=== PATIENT | male | born 1955 | race Caucasian/White ===

== ENCOUNTER 2021-06-22 08:45 | Inpatient (IN) | payer MEDICARE ==
[2021-06-22 10:10] VITALS: BMI 33.5
[2021-06-22] MEDS ORDERED: Morphine 4 MG/ML VIAL SLOW IVP SCH (11:15)
[2021-06-22] MEDS ORDERED: Acetaminophen 325 MG TAB PO PRN (11:45)
[2021-06-22] MEDS: Nicotine 21 MG PATCH TD SCH (13:42)
[2021-06-22] MEDS: cefTRIAXone\\ROCEPHIN 1 GM in Sodium Chloride 0.9% 100 ML IVPB SCH (13:42)
[2021-06-22 13:44] LABS: INR-International Normal Ratio 2.5; Prothrombin Time 27.8 sec (12.0-14.7)
[2021-06-22] MEDS: Morphine 4 MG/ML VIAL SLOW IVP PRN ×2 (16:30→21:30)
[2021-06-22] MEDS: Famotidine 20 MG TAB PO SCH (21:23)
[2021-06-23] MEDS: Morphine 4 MG/ML VIAL SLOW IVP PRN (00:32)
[2021-06-23] MEDS: HYDROcodone/Acetaminophen 10/325 mg Tablet PO PRN ×5 (04:21→22:08)
[2021-06-23 06:24] LABS: #Basophils 0.1 thou/uL (0.0-0.2); #Eosinphils 0.2 thou/uL (0.0-0.7); #Lymphocytes 1.5 thou/uL (1.20-3.40); #Monocytes 1.2 thou/uL (0.11-0.59); #Neutrophils 10.1 thou/uL (1.40-6.50); %Basophils 0.5 % (0.0-1.0); %Eosinophils 1.8 % (0.0-10.0); %Lymphocytes 11.5 % (21.0-51.0); %Monocytes 8.8 % (0.0-10.0); %Neutrophils 77.3 % (42.0-75.0); Hemoglobin 15.6 g/dL (14.0-18.0); Mean Corpuscular HGB CONC 32.1 g/dL (32.0-36.0); Mean Corpuscular Hemoglobin 32.3 pg (27.0-31.0); Mean Platelet Volume 9.1 fL (7.4-10.4); Platelet Count 189 thou/uL (130-400); RBC Distribution Width 12.3 % (11.5-14.5); Red Blood Cell (RBC) Count 4.83 mill/uL (4.70-6.10); White Blood Cell (WBC) Count 13.1 thou/uL (4.8-10.8)
[2021-06-23 06:44] LABS: Anion Gap 12 mmol/L (10-20); BUN (Urea Nitrogen) 16 mg/dL (8.4-25.7); Calc. Creatinine Clearance 125 mL/min (70-130); Calcium 8.9 mg/dL (7.8-10.44); Carbon Dioxide 26 mmol/L (23-31); Chloride 98 mmol/L (98-107); Glucose 121 mg/dL (80-115); Potassium 4.3 mmol/L (3.5-5.1); Sodium 132 mmol/L (136-145)
[2021-06-23] MEDS: Famotidine 20 MG TAB PO SCH ×2 (08:51→22:08)
[2021-06-23] MEDS: Enoxaparin Sodium 40 MG/0.4 ML SYRINGE SC SCH (08:59)
[2021-06-23] MEDS ORDERED: FLU VACC QS2021-22(65YR UP)/PF 240 MCG/0.7 ML SYRINGE IM ONE (09:00)
[2021-06-23] MEDS: cefTRIAXone\\ROCEPHIN 1 GM in Sodium Chloride 0.9% 100 ML IVPB SCH (12:48)
[2021-06-23] MEDS: Nicotine 21 MG PATCH TD SCH (12:51)
[2021-06-23 13:37] LABS: Prothrombin Time 22.8 sec (12.0-14.7)
[2021-06-23] MEDS: Sodium Chloride 0.65% Nasal 44 ML BOT EA NARE PRN ×2 (13:49→17:14)
[2021-06-23] MEDS ORDERED: WARFARIN 10 MG PO SCH (17:00)
[2021-06-24] MEDS: HYDROcodone/Acetaminophen 10/325 mg Tablet PO PRN ×5 (00:34→23:59)
[2021-06-24] MEDS: Ondansetron ODT 4 MG TAB PO PRN ×2 (00:37→06:42)
[2021-06-24 08:24] LABS: Hemoglobin 14.9 g/dL (14.0-18.0); Mean Corpuscular HGB CONC 32.6 g/dL (32.0-36.0); Mean Corpuscular Hemoglobin 32.8 pg (27.0-31.0); Mean Platelet Volume 8.7 fL (7.4-10.4); Platelet Count 190 thou/uL (130-400); RBC Distribution Width 12.3 % (11.5-14.5); Red Blood Cell (RBC) Count 4.54 mill/uL (4.70-6.10); White Blood Cell (WBC) Count 10.8 thou/uL (4.8-10.8)
[2021-06-24 08:36] LABS: INR-International Normal Ratio 1.7; Prothrombin Time 20.4 sec (12.0-14.7)
[2021-06-24 08:39] LABS: Anion Gap 13 mmol/L (10-20); BUN (Urea Nitrogen) 16 mg/dL (8.4-25.7); Calc. Creatinine Clearance 126 mL/min (70-130); Calcium 8.9 mg/dL (7.8-10.44); Carbon Dioxide 28 mmol/L (23-31); Chloride 99 mmol/L (98-107); Glucose 179 mg/dL (80-115); Potassium 4.5 mmol/L (3.5-5.1); Sodium 135 mmol/L (136-145)
[2021-06-24] MEDS ORDERED: Enoxaparin Sodium 100 MG/ML SYRINGE SC SCH (09:15)
[2021-06-24] MEDS: Famotidine 20 MG TAB PO SCH ×2 (09:35→19:56)
[2021-06-24] MEDS: Enoxaparin Sodium 40 MG/0.4 ML SYRINGE SC SCH (09:35)
[2021-06-24] MEDS: Lidocaine 5% Patch TD SCH (09:36)
[2021-06-24] MEDS: Sodium Chloride 0.65% Nasal 44 ML BOT EA NARE PRN ×3 (09:37→18:13)
[2021-06-24] MEDS: cefTRIAXone\\ROCEPHIN 1 GM in Sodium Chloride 0.9% 100 ML IVPB SCH (11:23)
[2021-06-24] MEDS ORDERED: Senokot 8.6 MG TAB PO PRN (12:00)
[2021-06-24] MEDS ORDERED: Polyethylene Glycol 3350 17 GM Packet PO SCH (12:00)
[2021-06-24] MEDS: Nicotine 21 MG PATCH TD SCH (13:00)
[2021-06-24] MEDS ORDERED: WARFARIN 10 MG PO SCH (17:00)
[2021-06-24] MEDS: Enoxaparin Sodium 100 MG/ML SYRINGE SC SCH ×2 (19:56→19:58)
[2021-06-24] MEDS: Senokot 8.6 MG TAB PO SCH (19:56)
[2021-06-24] MEDS: Transdermal Patch Removal TOP SCH (20:14)
[2021-06-25] MEDS: HYDROcodone/Acetaminophen 10/325 mg Tablet PO PRN ×5 (03:45→21:37)
[2021-06-25 05:34] LABS: INR-International Normal Ratio 1.8; Prothrombin Time 21.5 sec (12.0-14.7)
[2021-06-25] MEDS: Enoxaparin Sodium 100 MG/ML SYRINGE SC SCH ×2 (08:53→21:23)
[2021-06-25] MEDS: Famotidine 20 MG TAB PO SCH ×2 (08:54→21:32)
[2021-06-25] MEDS: Senokot 8.6 MG TAB PO SCH ×2 (08:55→21:33)
[2021-06-25] MEDS: Polyethylene Glycol 3350 17 GM Packet PO SCH (08:56)
[2021-06-25] MEDS: Lidocaine 5% Patch TD SCH ×2 (08:56→08:58)
[2021-06-25] MEDS ORDERED: Warfarin Sodium 10 MG TAB PO SCH (09:00)
[2021-06-25] MEDS ORDERED: Bisacodyl 5 MG TAB PO SCH (12:45)
[2021-06-25] MEDS: cefTRIAXone\\ROCEPHIN 1 GM in Sodium Chloride 0.9% 100 ML IVPB SCH (13:42)
[2021-06-25] MEDS: Nicotine 21 MG PATCH TD SCH (13:42)
[2021-06-25] MEDS ORDERED: WARFARIN 10 MG PO SCH (17:00)
[2021-06-25] MEDS: WARFARIN 10 MG PO SCH ×2 (17:40→20:20)
[2021-06-25] MEDS: Transdermal Patch Removal TOP SCH (21:39)
[2021-06-26] MEDS: HYDROcodone/Acetaminophen 10/325 mg Tablet PO PRN ×4 (02:50→15:16)
[2021-06-26] MEDS: Lidocaine 5% Patch TD SCH (08:23)
[2021-06-26] MEDS: Famotidine 20 MG TAB PO SCH (08:23)
[2021-06-26] MEDS: Polyethylene Glycol 3350 17 GM Packet PO SCH (08:23)
[2021-06-26] MEDS: Senokot 8.6 MG TAB PO SCH (08:23)
[2021-06-26] MEDS: Enoxaparin Sodium 100 MG/ML SYRINGE SC SCH (08:23)
[2021-06-26 08:57] VITALS: BP 134/78; TEMP 97.6
[2021-06-26 09:05] LABS: INR-International Normal Ratio 2.1; Prothrombin Time 24.1 sec (12.0-14.7)
[2021-06-26] MEDS: cefTRIAXone\\ROCEPHIN 1 GM in Sodium Chloride 0.9% 100 ML IVPB SCH (11:59)
[2021-06-26] MEDS: Nicotine 21 MG PATCH TD SCH (11:59)
[2021-06-26] MEDS ORDERED: WARFARIN 10 MG PO SCH (17:00)
== END 2021-06-26 15:38 | disposition home or self-care (01) | DRG 193 ==
LOC: MSONC 10:02 → INTOOBSV 10:02 → OBSVTOIN 06-24 18:26
PROVIDERS: ADMIT Student in an Organized Health Care Education/Training Program; ATTEND Internal Medicine
DX: J18.9 Pneumonia, unspecified organism (principal); J96.01 Acute respiratory failure with hypoxia; E87.1 Hypo-osmolality and hyponatremia; S22.31XA Fracture of one rib, right side, initial encounter for closed fracture; J43.9 Emphysema, unspecified; K76.0 Fatty (change of) liver, not elsewhere classified; K59.00 Constipation, unspecified; F17.210 Nicotine dependence, cigarettes, uncomplicated; W20.8XXA Other cause of strike by thrown, projected or falling object, initial encounter; Z88.1 Allergy status to other antibiotic agents; Z79.01 Long term (current) use of anticoagulants; Z79.899 Other long term (current) drug therapy; Z95.2 Presence of prosthetic heart valve; Z79.891 Long term (current) use of opiate analgesic; Z90.49 Acquired absence of other specified parts of digestive tract; Z71.6 Tobacco abuse counseling
CPT/HCPCS: 36415; 80048; 83880; 85025; 85027; 85610; 93306; 96365; 96366; 96367; 96375; 96376; G0378; J0696; J1650; J2270; J3490; J7620; Q0162

== ENCOUNTER 2025-02-05 08:28 | Outpatient (CLI) | payer OTHER | END 2025-02-05 08:29 | disposition home or self-care (01) | LOC: RAD 08:28 | PROVIDERS: ATTEND Internal Medicine | DX: R06.00 Dyspnea, unspecified (principal); R06.9 Unspecified abnormalities of breathing; R91.1 Solitary pulmonary nodule | CPT/HCPCS: 71046 ==

== ENCOUNTER 2025-04-05 11:53 | Outpatient (CLI) | payer OTHER | END 2025-04-05 11:54 | disposition home or self-care (01) | LOC: RAD 11:53 | DX: K59.00 Constipation, unspecified (principal); R63.0 Anorexia; R63.4 Abnormal weight loss | CPT/HCPCS: 74018 ==

== ENCOUNTER 2025-04-08 09:19 | Outpatient (CLI) | payer OTHER ==
[2025-04-08] MEDS ORDERED: Barium Sulfate 96% 176 GM BOT (xray ONLY) ONE (09:30)
[2025-04-08] MEDS ORDERED: E-Z-HD 98% W/W 340GM BOT (x-ray ONLY) ONE (09:30)
== END 2025-04-08 09:20 | disposition home or self-care (01) ==
LOC: RAD 09:19
DX: K59.00 Constipation, unspecified (principal); R63.0 Anorexia; R63.4 Abnormal weight loss; K57.10 Diverticulosis of small intestine without perforation or abscess without bleeding
CPT/HCPCS: 74246

== ENCOUNTER 2025-04-09 04:45 | Inpatient (IN) | payer OTHER ==
[2025-04-09 06:10] VITALS: BMI 31.4
[2025-04-09] MEDS ORDERED: Electrolyte Replacement Protocol 1 EACH FS SCH (06:15)
[2025-04-09] MEDS ORDERED: PHOS-NAK 1 PKT PACK PO PRN (06:30)
[2025-04-09] MEDS ORDERED: Magnesium 2 GM/50 ML(in water) 2 GM in Premix 1 BAG IVPB PRN (06:30)
[2025-04-09] MEDS ORDERED: Potassium Chloride 20 MEQ in Premix 1 BAG IVPB PRN (06:30)
[2025-04-09 07:01] LABS: #Basophils 0.09 10x3/uL (0.0-0.2); #Eosinophils 0.24 10x3/uL (0.0-0.7); #Monocytes 0.63 10x3/uL (0.11-0.59); #Neutrophils 5.38 10x3/uL (1.40-6.50); %Basophils 1.2 % (0.0-1.0); %Eosinophils 3.1 % (0.0-10.0); %Lymphocytes 17.3 % (21.0-51.0); %Monocytes 8.2 % (0.0-10.0); %Neutrophils 69.8 % (42.0-75.0); Hematocrit 36.4 % (42.0-52.0); Hemoglobin 11.8 g/dL (14.0-18.0); Mean Corpuscular Hemoglobin 30.9 pg (27.0-31.0); Mean Corpuscular Volume 95.3 fL (78.0-98.0); Platelet Count 251 10x3/uL (130-400); Red Blood Cell (RBC) Count 3.82 mill/uL (4.70-6.10); White Blood Cell (WBC) Count 7.70 10x3/uL (4.8-10.8)
[2025-04-09 07:17] LABS: ALT (SGPT) 9 U/L (Less than 45); AST (SGOT) 24 U/L (11-34); Albumin 3.2 g/dL (3.1-4.5); Alkaline Phosphatase 97 U/L (40-110); Anion Gap 11 mmol/L (10-20); BUN (Urea Nitrogen) 8 mg/dL (8.4-25.7); Bilirubin, Total 0.5 mg/dL (0.3-1.2); Calc. Creatinine Clearance 130 mL/min (70-130); Calcium 8.8 mg/dL (7.8-10.44); Carbon Dioxide 27 mmol/L (23-31); Chloride 103 mmol/L (98-107); Globulin 3.5 g/dL (2.4-3.5); Glucose 102 mg/dL (80-115); Potassium 4.0 mmol/L (3.5-5.1); Sodium 137 mmol/L (136-145)
[2025-04-09] MEDS ORDERED: GUAIFENESIN SF SOLN 200 MG/10 ML UDCUP PO PRN (07:57)
[2025-04-09] MEDS ORDERED: Sodium Chloride 0.65% Nasal 44 ML BOT EA NARE PRN (07:57)
[2025-04-09] MEDS ORDERED: Artificial Tear Ophth Sol 15 ML BOT EA EYE PRN (07:57)
[2025-04-09] MEDS ORDERED: FLU (Fluad Triv) 25-26 (65UP)PF 45 MCG/0.5 ML Syringe IM ONE (08:15)
[2025-04-09] MEDS ORDERED: Pantoprazole 40 MG DR.TAB PO SCH (09:00)
[2025-04-09] MEDS: HYDROcodone/Acetaminophen 5/325 mg Tablet PO PRN (09:09)
[2025-04-09] MEDS: Pantoprazole 40 MG DR.TAB PO SCH (09:10)
[2025-04-09] MEDS: Lactulose 20 GM (30 mL) UDCUP PO SCH (09:21)
[2025-04-09 10:24] LABS: INR-International Normal Ratio 3.4; Prothrombin Time 34.7 sec (12.0-14.7)
[2025-04-09 10:25] LABS: PTT 45.4 sec (22.9-36.1)
[2025-04-09 16:42] VITALS: BMI 31.4
[2025-04-10] MEDS: Ondansetron PF 4 MG/2 ML Vial IVP PRN (03:36)
[2025-04-10 03:47] LABS: #Basophils 0.06 10x3/uL (0.0-0.2); #Eosinophils 0.31 10x3/uL (0.0-0.7); #Monocytes 0.92 10x3/uL (0.11-0.59); #Neutrophils 7.41 10x3/uL (1.40-6.50); %Basophils 0.6 % (0.0-1.0); %Eosinophils 3.0 % (0.0-10.0); %Lymphocytes 14.4 % (21.0-51.0); %Monocytes 9.0 % (0.0-10.0); %Neutrophils 72.6 % (42.0-75.0); Hematocrit 38.7 % (42.0-52.0); Hemoglobin 12.0 g/dL (14.0-18.0); Mean Corpuscular Hemoglobin 30.0 pg (27.0-31.0); Mean Corpuscular Volume 96.8 fL (78.0-98.0); Platelet Count 257 10x3/uL (130-400); Red Blood Cell (RBC) Count 4.00 mill/uL (4.70-6.10); White Blood Cell (WBC) Count 10.21 10x3/uL (4.8-10.8)
[2025-04-10 04:13] LABS: ALT (SGPT) 10 U/L (Less than 45); AST (SGOT) 27 U/L (11-34); Albumin 3.3 g/dL (3.1-4.5); Alkaline Phosphatase 96 U/L (40-110); Anion Gap 12 mmol/L (10-20); BUN (Urea Nitrogen) 10 mg/dL (8.4-25.7); Bilirubin, Total 0.5 mg/dL (0.3-1.2); Calc. Creatinine Clearance 109 mL/min (70-130); Calcium 8.9 mg/dL (7.8-10.44); Carbon Dioxide 28 mmol/L (23-31); Chloride 103 mmol/L (98-107); Globulin 3.6 g/dL (2.4-3.5); Glucose 95 mg/dL (80-115); Potassium 4.2 mmol/L (3.5-5.1); Sodium 139 mmol/L (136-145)
[2025-04-10 05:05] LABS: INR-International Normal Ratio 3.6; Prothrombin Time 36.2 sec (12.0-14.7)
[2025-04-10 05:07] LABS: PTT 58.6 sec (22.9-36.1)
[2025-04-10] MEDS: Acetaminophen 325 MG TAB PO PRN (10:52)
[2025-04-10] MEDS: FLU (Fluad Triv) 25-26 (65UP)PF 45 MCG/0.5 ML Syringe IM ONE (10:58)
[2025-04-10] MEDS: PNEUMOC 20-VAL CONJ-DIP CRM/PF 0.5 ML SYRINGE IM ONE (10:59)
[2025-04-11] MEDS: Cefepime 2 GM VIAL ONE (01:20)
[2025-04-11 04:01] LABS: #Basophils 0.05 10x3/uL (0.0-0.2); #Eosinophils 0.40 10x3/uL (0.0-0.7); #Monocytes 0.70 10x3/uL (0.11-0.59); #Neutrophils 5.11 10x3/uL (1.40-6.50); %Basophils 0.7 % (0.0-1.0); %Eosinophils 5.4 % (0.0-10.0); %Lymphocytes 15.5 % (21.0-51.0); %Monocytes 9.4 % (0.0-10.0); %Neutrophils 68.6 % (42.0-75.0); Hematocrit 34.4 % (42.0-52.0); Hemoglobin 10.8 g/dL (14.0-18.0); Mean Corpuscular Hemoglobin 30.3 pg (27.0-31.0); Mean Corpuscular Volume 96.4 fL (78.0-98.0); Platelet Count 210 10x3/uL (130-400); Red Blood Cell (RBC) Count 3.57 mill/uL (4.70-6.10); White Blood Cell (WBC) Count 7.44 10x3/uL (4.8-10.8)
[2025-04-11 04:15] LABS: INR-International Normal Ratio 2.2; Prothrombin Time 24.3 sec (12.0-14.7)
[2025-04-11 04:16] LABS: PTT 54.7 sec (22.9-36.1)
[2025-04-11 04:26] LABS: Anion Gap 12 mmol/L (10-20); BUN (Urea Nitrogen) 12 mg/dL (8.4-25.7); Calc. Creatinine Clearance 112 mL/min (70-130); Calcium 8.5 mg/dL (7.8-10.44); Carbon Dioxide 28 mmol/L (23-31); Chloride 99 mmol/L (98-107); Glucose 88 mg/dL (80-115); Potassium 3.8 mmol/L (3.5-5.1); Sodium 135 mmol/L (136-145)
[2025-04-11] MEDS: Calcium Carbonate 500 MG ChewTAB PO PRN (09:53)
[2025-04-11] MEDS: predniSONE 20 MG TAB PO SCH (09:57)
[2025-04-11] MEDS: Enoxaparin 80 MG (0.8 mL) SYRINGE SC SCH (11:32)
[2025-04-11] MEDS: Azithromycin 250 MG TAB PO SCH ×2 (13:48→14:03)
[2025-04-11] MEDS: DorzolamidE/Timolol 2%/0.5% Ophth Soln 10 ml Bottle EA EYE SCH (21:07)
[2025-04-12 04:12] LABS: #Basophils 0.03 10x3/uL (0.0-0.2); #Eosinophils 0.26 10x3/uL (0.0-0.7); #Monocytes 0.59 10x3/uL (0.11-0.59); #Neutrophils 6.33 10x3/uL (1.40-6.50); %Basophils 0.4 % (0.0-1.0); %Eosinophils 3.0 % (0.0-10.0); %Lymphocytes 15.3 % (21.0-51.0); %Monocytes 6.9 % (0.0-10.0); %Neutrophils 74.0 % (42.0-75.0); Hematocrit 33.7 % (42.0-52.0); Hemoglobin 11.1 g/dL (14.0-18.0); Mean Corpuscular Hemoglobin 31.0 pg (27.0-31.0); Mean Corpuscular Volume 94.1 fL (78.0-98.0); Platelet Count 200 10x3/uL (130-400); Red Blood Cell (RBC) Count 3.58 mill/uL (4.70-6.10); White Blood Cell (WBC) Count 8.55 10x3/uL (4.8-10.8)
[2025-04-12 04:27] LABS: Anion Gap 13 mmol/L (10-20); BUN (Urea Nitrogen) 12 mg/dL (8.4-25.7); Calc. Creatinine Clearance 128 mL/min (70-130); Calcium 9.1 mg/dL (7.8-10.44); Carbon Dioxide 27 mmol/L (23-31); Chloride 101 mmol/L (98-107); Glucose 117 mg/dL (80-115); Potassium 3.8 mmol/L (3.5-5.1); Sodium 137 mmol/L (136-145)
[2025-04-12 04:29] LABS: INR-International Normal Ratio 1.3; Prothrombin Time 16.7 sec (12.0-14.7)
[2025-04-12 04:30] LABS: PTT 43.3 sec (22.9-36.1)
[2025-04-12] MEDS: Azithromycin 250 MG TAB PO SCH (08:45)
[2025-04-12] MEDS: predniSONE 20 MG TAB PO SCH (08:45)
[2025-04-12] MEDS: Enoxaparin 80 MG (0.8 mL) SYRINGE SC SCH ×2 (12:44→20:18)
[2025-04-12] MEDS ORDERED: Iopamidol-370 76% 500 ML MDV (1 ML CHARGE) ONE (13:27)
[2025-04-13 04:04] LABS: #Basophils 0.08 10x3/uL (0.0-0.2); #Eosinophils 0.44 10x3/uL (0.0-0.7); #Monocytes 0.85 10x3/uL (0.11-0.59); #Neutrophils 6.28 10x3/uL (1.40-6.50); %Basophils 0.8 % (0.0-1.0); %Eosinophils 4.6 % (0.0-10.0); %Lymphocytes 18.9 % (21.0-51.0); %Monocytes 9.0 % (0.0-10.0); %Neutrophils 66.4 % (42.0-75.0); Hematocrit 34.7 % (42.0-52.0); Hemoglobin 11.0 g/dL (14.0-18.0); Mean Corpuscular Hemoglobin 30.1 pg (27.0-31.0); Mean Corpuscular Volume 95.1 fL (78.0-98.0); Platelet Count 217 10x3/uL (130-400); Red Blood Cell (RBC) Count 3.65 mill/uL (4.70-6.10); White Blood Cell (WBC) Count 9.47 10x3/uL (4.8-10.8)
[2025-04-13 04:18] LABS: INR-International Normal Ratio 1.2; Prothrombin Time 15.4 sec (12.0-14.7)
[2025-04-13 04:19] LABS: PTT 48.3 sec (22.9-36.1)
[2025-04-13 04:21] LABS: Anion Gap 12 mmol/L (10-20); BUN (Urea Nitrogen) 14 mg/dL (8.4-25.7); Calc. Creatinine Clearance 122 mL/min (70-130); Calcium 8.7 mg/dL (7.8-10.44); Carbon Dioxide 31 mmol/L (23-31); Chloride 100 mmol/L (98-107); Glucose 82 mg/dL (80-115); Potassium 4.0 mmol/L (3.5-5.1); Sodium 139 mmol/L (136-145)
[2025-04-13] MEDS: Enoxaparin 80 MG (0.8 mL) SYRINGE SC SCH ×2 (10:39→21:03)
[2025-04-14 05:31] LABS: #Basophils 0.08 10x3/uL (0.0-0.2); #Eosinophils 0.24 10x3/uL (0.0-0.7); #Monocytes 0.81 10x3/uL (0.11-0.59); #Neutrophils 5.71 10x3/uL (1.40-6.50); %Basophils 0.9 % (0.0-1.0); %Eosinophils 2.8 % (0.0-10.0); %Lymphocytes 19.6 % (21.0-51.0); %Monocytes 9.5 % (0.0-10.0); %Neutrophils 66.7 % (42.0-75.0); Hematocrit 35.4 % (42.0-52.0); Hemoglobin 11.0 g/dL (14.0-18.0); Mean Corpuscular Hemoglobin 29.8 pg (27.0-31.0); Mean Corpuscular Volume 95.9 fL (78.0-98.0); Platelet Count 215 10x3/uL (130-400); Red Blood Cell (RBC) Count 3.69 mill/uL (4.70-6.10); White Blood Cell (WBC) Count 8.56 10x3/uL (4.8-10.8)
[2025-04-14 05:44] LABS: Anion Gap 13 mmol/L (10-20); BUN (Urea Nitrogen) 13 mg/dL (8.4-25.7); Calc. Creatinine Clearance 122 mL/min (70-130); Calcium 9.0 mg/dL (7.8-10.44); Carbon Dioxide 32 mmol/L (23-31); Chloride 99 mmol/L (98-107); Glucose 76 mg/dL (80-115); Potassium 3.6 mmol/L (3.5-5.1); Sodium 140 mmol/L (136-145)
[2025-04-15 04:32] LABS: #Basophils 0.09 10x3/uL (0.0-0.2); #Eosinophils 0.37 10x3/uL (0.0-0.7); #Monocytes 0.74 10x3/uL (0.11-0.59); #Neutrophils 5.45 10x3/uL (1.40-6.50); %Basophils 1.1 % (0.0-1.0); %Eosinophils 4.4 % (0.0-10.0); %Lymphocytes 20.4 % (21.0-51.0); %Monocytes 8.8 % (0.0-10.0); %Neutrophils 64.8 % (42.0-75.0); Hematocrit 35.3 % (42.0-52.0); Hemoglobin 11.4 g/dL (14.0-18.0); Mean Corpuscular Hemoglobin 30.4 pg (27.0-31.0); Mean Corpuscular Volume 94.1 fL (78.0-98.0); Platelet Count 213 10x3/uL (130-400); Red Blood Cell (RBC) Count 3.75 mill/uL (4.70-6.10); White Blood Cell (WBC) Count 8.40 10x3/uL (4.8-10.8)
[2025-04-15 04:43] LABS: INR-International Normal Ratio 1.2; Prothrombin Time 15.2 sec (12.0-14.7)
[2025-04-15 04:44] LABS: PTT 43.5 sec (22.9-36.1)
[2025-04-15 04:48] LABS: Anion Gap 13 mmol/L (10-20); BUN (Urea Nitrogen) 14 mg/dL (8.4-25.7); Calc. Creatinine Clearance 132 mL/min (70-130); Calcium 8.8 mg/dL (7.8-10.44); Carbon Dioxide 32 mmol/L (23-31); Chloride 100 mmol/L (98-107); Glucose 82 mg/dL (80-115); Potassium 3.6 mmol/L (3.5-5.1); Sodium 141 mmol/L (136-145)
[2025-04-15] MEDS ORDERED: Lidocaine 1% w/Epinephrine 1:100K 20 ML VIAL ONE (11:20)
[2025-04-15] MEDS ORDERED: Sodium Bicarbonate 2.5 MEQ/5 ML SDV ONE (11:20)
[2025-04-16 03:42] LABS: #Basophils 0.09 10x3/uL (0.0-0.2); #Eosinophils 0.54 10x3/uL (0.0-0.7); #Monocytes 0.97 10x3/uL (0.11-0.59); #Neutrophils 6.57 10x3/uL (1.40-6.50); %Basophils 0.9 % (0.0-1.0); %Eosinophils 5.4 % (0.0-10.0); %Lymphocytes 17.5 % (21.0-51.0); %Monocytes 9.7 % (0.0-10.0); %Neutrophils 66.0 % (42.0-75.0); Hematocrit 36.5 % (42.0-52.0); Hemoglobin 11.9 g/dL (14.0-18.0); Mean Corpuscular Hemoglobin 30.6 pg (27.0-31.0); Mean Corpuscular Volume 93.8 fL (78.0-98.0); Platelet Count 236 10x3/uL (130-400); Red Blood Cell (RBC) Count 3.89 mill/uL (4.70-6.10); White Blood Cell (WBC) Count 9.96 10x3/uL (4.8-10.8)
[2025-04-16 04:04] LABS: Anion Gap 15 mmol/L (10-20); BUN (Urea Nitrogen) 18 mg/dL (8.4-25.7); Calc. Creatinine Clearance 132 mL/min (70-130); Calcium 9.1 mg/dL (7.8-10.44); Carbon Dioxide 28 mmol/L (23-31); Chloride 98 mmol/L (98-107); Glucose 78 mg/dL (80-115); Potassium 3.8 mmol/L (3.5-5.1); Sodium 137 mmol/L (136-145)
[2025-04-16 12:27] VITALS: BP 124/80; TEMP 98.7
[2025-04-16] MEDS ORDERED: Mometasone 200 MCG/Formoterol 5 MCG 120 PUFF INHALER INH SCH (18:30)
== END 2025-04-16 16:47 | disposition home or self-care (01) | DRG 180 ==
LOC: PCU 05:27
PROVIDERS: ADMIT Student in an Organized Health Care Education/Training Program; ATTEND Internal Medicine
PROC: 3E0234Z Introduction of Serum, Toxoid and Vaccine into Muscle, Percutaneous Approach (ICD-10-PCS; 2025-04-10)
PROC: 3E03329 Introduction of Other Anti-infective into Peripheral Vein, Percutaneous Approach (ICD-10-PCS; 2025-04-11)
PROC: 0FB13ZX Excision of Right Lobe Liver, Percutaneous Approach, Diagnostic (ICD-10-PCS; principal; 2025-04-15)
DX: C34.11 Malignant neoplasm of upper lobe, right bronchus or lung (principal); E43 Unspecified severe protein-calorie malnutrition; J18.9 Pneumonia, unspecified organism; C78.89 Secondary malignant neoplasm of other digestive organs; J44.1 Chronic obstructive pulmonary disease with (acute) exacerbation; R59.1 Generalized enlarged lymph nodes; F17.210 Nicotine dependence, cigarettes, uncomplicated; K21.9 Gastro-esophageal reflux disease without esophagitis; Z98.890 Other specified postprocedural states; Z90.49 Acquired absence of other specified parts of digestive tract; Z95.2 Presence of prosthetic heart valve; Z79.899 Other long term (current) drug therapy; Z79.52 Long term (current) use of systemic steroids; Z88.1 Allergy status to other antibiotic agents; Z68.31 Body mass index [BMI] 31.0-31.9, adult; Z91.148 Patient's other noncompliance with medication regimen for other reason; Z79.01 Long term (current) use of anticoagulants; Z87.11 Personal history of peptic ulcer disease; Z23 Encounter for immunization; S52.022A Displaced fracture of olecranon process without intraarticular extension of left ulna, initial encounter for closed fracture; V00.131A Fall from skateboard, initial encounter
CPT/HCPCS: 36415; 36416; 47000; 70553; 71045; 74018; 74177; 74246; 76376; 77012; 80048; 80053; 83690; 84145; 85025; 85610; 85730; 86301; 88307; 88325; 88333; 88334; 88341; 88342; 93306; 94640; 99152; 99153; J0692; J1650; J2250; J2270; J2405; J3010; J7120; J7512; J7626; Q0162; Q9967

== ENCOUNTER 2025-05-04 09:22 | Inpatient (IN) | payer OTHER ==
[2025-05-04 12:30] VITALS: BMI 28.6
[2025-05-04] MEDS: Senokot S 8.6-50 MG TAB PO SCH ×2 (14:23→19:41)
[2025-05-04] MEDS: Azithromycin 500 MG in Sodium Chloride 0.9% 250 ML 250 ML IVPB SCH (14:23)
[2025-05-04] MEDS: cefTRIAXone\\ROCEPHIN 1 GM in Sodium Chloride 0.9% 100 ML IVPB SCH (15:02)
[2025-05-04] MEDS ORDERED: Benzonatate 100 MG CAP PO PRN (17:14)
[2025-05-04 18:50] LABS: Hematocrit 31.5 % (42.0-52.0); Hemoglobin 10.3 g/dL (14.0-18.0)
[2025-05-04] MEDS: Mometasone 100 MCG/Formoterol 5 MCG 120 PUFF INHALER INH SCH (19:04)
[2025-05-04] MEDS: HYDROcodone/Acetaminophen 10/325 mg Tablet PO PRN (19:42)
[2025-05-04] MEDS: Pantoprazole 40 MG DR.TAB PO SCH (19:42)
[2025-05-04] MEDS: Enoxaparin 80 MG (0.8 mL) SYRINGE SC SCH (19:43)
[2025-05-04] MEDS: DorzolamidE/Timolol 2%/0.5% Ophth Soln 10 ml Bottle EA EYE SCH (21:38)
[2025-05-05 06:53] LABS: #Basophils 0.04 10x3/uL (0.0-0.2); #Eosinophils 0.24 10x3/uL (0.0-0.7); #Monocytes 0.74 10x3/uL (0.11-0.59); #Neutrophils 7.12 10x3/uL (1.40-6.50); %Basophils 0.4 % (0.0-1.0); %Eosinophils 2.5 % (0.0-10.0); %Lymphocytes 14.5 % (21.0-51.0); %Monocytes 7.7 % (0.0-10.0); %Neutrophils 74.4 % (42.0-75.0); Hematocrit 33.3 % (42.0-52.0); Hemoglobin 10.9 g/dL (14.0-18.0); Mean Corpuscular Hemoglobin 30.1 pg (27.0-31.0); Mean Corpuscular Volume 92.0 fL (78.0-98.0); Platelet Count 332 10x3/uL (130-400); Red Blood Cell (RBC) Count 3.62 mill/uL (4.70-6.10); White Blood Cell (WBC) Count 9.58 10x3/uL (4.8-10.8)
[2025-05-05 07:16] LABS: Anion Gap 13 mmol/L (10-20); BUN (Urea Nitrogen) 14 mg/dL (8.4-25.7); Calc. Creatinine Clearance 132 mL/min (70-130); Calcium 9.0 mg/dL (7.8-10.44); Carbon Dioxide 28 mmol/L (23-31); Chloride 99 mmol/L (98-107); Glucose 76 mg/dL (80-115); Potassium 4.0 mmol/L (3.5-5.1); Sodium 136 mmol/L (136-145)
[2025-05-05] MEDS ORDERED: cloNIDine 0.1 MG TAB PO PRN (07:55)
[2025-05-05] MEDS: cloNIDine 0.1 MG TAB PO SCH (08:39)
[2025-05-05] MEDS: cefTRIAXone\\ROCEPHIN 1 GM in Sodium Chloride 0.9% 100 ML IVPB SCH (11:14)
[2025-05-05] MEDS: cloNIDine 0.1mg/24 Hour PATCH TD SCH (14:25)
[2025-05-05] MEDS: Ondansetron PF 4 MG/2 ML Vial IVP PRN (14:25)
[2025-05-05] MEDS: Acetaminophen 325 MG TAB PO PRN (14:28)
[2025-05-05] MEDS: Ibuprofen 600 MG TAB PO PRN (17:35)
[2025-05-06 06:13] LABS: #Basophils 0.07 10x3/uL (0.0-0.2); #Eosinophils 0.33 10x3/uL (0.0-0.7); #Monocytes 0.68 10x3/uL (0.11-0.59); #Neutrophils 4.33 10x3/uL (1.40-6.50); %Basophils 1.0 % (0.0-1.0); %Eosinophils 4.7 % (0.0-10.0); %Lymphocytes 22.7 % (21.0-51.0); %Monocytes 9.7 % (0.0-10.0); %Neutrophils 61.5 % (42.0-75.0); Hematocrit 32.2 % (42.0-52.0); Hemoglobin 10.2 g/dL (14.0-18.0); Mean Corpuscular Hemoglobin 29.9 pg (27.0-31.0); Mean Corpuscular Volume 94.4 fL (78.0-98.0); Platelet Count 318 10x3/uL (130-400); Red Blood Cell (RBC) Count 3.41 mill/uL (4.70-6.10); White Blood Cell (WBC) Count 7.04 10x3/uL (4.8-10.8)
[2025-05-06 06:29] LABS: Anion Gap 14 mmol/L (10-20); BUN (Urea Nitrogen) 16 mg/dL (8.4-25.7); Calc. Creatinine Clearance 121 mL/min (70-130); Calcium 8.5 mg/dL (7.8-10.44); Carbon Dioxide 27 mmol/L (23-31); Chloride 100 mmol/L (98-107); Glucose 67 mg/dL (80-115); Potassium 3.9 mmol/L (3.5-5.1); Sodium 137 mmol/L (136-145)
[2025-05-06 06:49] LABS: INR-International Normal Ratio 1.3; Prothrombin Time 16.3 sec (12.0-14.7)
[2025-05-06 10:59] VITALS: BMI 28.6
[2025-05-06] MEDS: D5W-AA 4.25% with LYTES 1,000 ML IV SCH (13:00)
[2025-05-06] MEDS: Enoxaparin 80 MG (0.8 mL) SYRINGE SC SCH ×2 (13:00→21:31)
[2025-05-06] MEDS: Megestrol Acetate 800 MG/20 ML UDCUP PO SCH (13:01)
[2025-05-06] MEDS: Senokot S 8.6-50 MG TAB PO SCH (21:31)
[2025-05-07 04:57] LABS: #Basophils 0.06 10x3/uL (0.0-0.2); #Eosinophils 0.33 10x3/uL (0.0-0.7); #Monocytes 0.74 10x3/uL (0.11-0.59); #Neutrophils 5.03 10x3/uL (1.40-6.50); %Basophils 0.8 % (0.0-1.0); %Eosinophils 4.2 % (0.0-10.0); %Lymphocytes 20.7 % (21.0-51.0); %Monocytes 9.5 % (0.0-10.0); %Neutrophils 64.5 % (42.0-75.0); Hematocrit 31.3 % (42.0-52.0); Hemoglobin 10.3 g/dL (14.0-18.0); Mean Corpuscular Hemoglobin 30.5 pg (27.0-31.0); Mean Corpuscular Volume 92.6 fL (78.0-98.0); Platelet Count 315 10x3/uL (130-400); Red Blood Cell (RBC) Count 3.38 mill/uL (4.70-6.10); White Blood Cell (WBC) Count 7.79 10x3/uL (4.8-10.8)
[2025-05-07 05:15] LABS: Anion Gap 12 mmol/L (10-20); BUN (Urea Nitrogen) 16 mg/dL (8.4-25.7); Calc. Creatinine Clearance 127 mL/min (70-130); Calcium 8.6 mg/dL (7.8-10.44); Carbon Dioxide 28 mmol/L (23-31); Chloride 101 mmol/L (98-107); Glucose 101 mg/dL (80-115); Potassium 3.7 mmol/L (3.5-5.1); Sodium 137 mmol/L (136-145)
[2025-05-07] MEDS: Megestrol Acetate 800 MG/20 ML UDCUP PO SCH (07:49)
[2025-05-07] MEDS: Thiamine 100 MG TAB PO SCH (07:50)
[2025-05-07] MEDS: PNEUMOC 20-VAL CONJ-DIP CRM/PF 0.5 ML SYRINGE IM ONE (15:16)
[2025-05-08 04:27] LABS: #Basophils 0.05 10x3/uL (0.0-0.2); #Eosinophils 0.39 10x3/uL (0.0-0.7); #Monocytes 0.85 10x3/uL (0.11-0.59); #Neutrophils 6.39 10x3/uL (1.40-6.50); %Basophils 0.6 % (0.0-1.0); %Eosinophils 4.4 % (0.0-10.0); %Lymphocytes 12.9 % (21.0-51.0); %Monocytes 9.6 % (0.0-10.0); %Neutrophils 72.0 % (42.0-75.0); Hematocrit 30.2 % (42.0-52.0); Hemoglobin 9.5 g/dL (14.0-18.0); Mean Corpuscular Hemoglobin 29.6 pg (27.0-31.0); Mean Corpuscular Volume 94.1 fL (78.0-98.0); Platelet Count 292 10x3/uL (130-400); Red Blood Cell (RBC) Count 3.21 mill/uL (4.70-6.10); White Blood Cell (WBC) Count 8.86 10x3/uL (4.8-10.8)
[2025-05-08 04:42] LABS: Anion Gap 12 mmol/L (10-20); BUN (Urea Nitrogen) 14 mg/dL (8.4-25.7); Calc. Creatinine Clearance 123 mL/min (70-130); Calcium 8.5 mg/dL (7.8-10.44); Carbon Dioxide 24 mmol/L (23-31); Chloride 106 mmol/L (98-107); Glucose 98 mg/dL (80-115); Potassium 3.6 mmol/L (3.5-5.1); Sodium 138 mmol/L (136-145)
[2025-05-09 05:48] LABS: #Basophils 0.03 10x3/uL (0.0-0.2); #Eosinophils Less than 0.03 10x3/uL (0.0-0.7); #Monocytes 0.62 10x3/uL (0.11-0.59); #Neutrophils 9.69 10x3/uL (1.40-6.50); %Basophils 0.3 % (0.0-1.0); %Eosinophils 0.2 % (0.0-10.0); %Lymphocytes 7.7 % (21.0-51.0); %Monocytes 5.5 % (0.0-10.0); %Neutrophils 85.7 % (42.0-75.0); Hematocrit 30.3 % (42.0-52.0); Hemoglobin 9.7 g/dL (14.0-18.0); Mean Corpuscular Hemoglobin 29.8 pg (27.0-31.0); Mean Corpuscular Volume 92.9 fL (78.0-98.0); Platelet Count 299 10x3/uL (130-400); Red Blood Cell (RBC) Count 3.26 mill/uL (4.70-6.10); White Blood Cell (WBC) Count 11.30 10x3/uL (4.8-10.8)
[2025-05-09 06:16] LABS: Anion Gap 12 mmol/L (10-20); BUN (Urea Nitrogen) 17 mg/dL (8.4-25.7); Calc. Creatinine Clearance 134 mL/min (70-130); Calcium 8.9 mg/dL (7.8-10.44); Carbon Dioxide 23 mmol/L (23-31); Chloride 105 mmol/L (98-107); Glucose 121 mg/dL (80-115); Potassium 4.3 mmol/L (3.5-5.1); Sodium 136 mmol/L (136-145)
[2025-05-09] MEDS: cloNIDine 0.1 MG TAB PO PRN (20:05)
[2025-05-10 04:31] LABS: #Basophils 0.03 10x3/uL (0.0-0.2); #Eosinophils Less than 0.03 10x3/uL (0.0-0.7); #Monocytes 0.48 10x3/uL (0.11-0.59); #Neutrophils 11.77 10x3/uL (1.40-6.50); %Basophils 0.2 % (0.0-1.0); %Eosinophils 0.1 % (0.0-10.0); %Lymphocytes 5.1 % (21.0-51.0); %Monocytes 3.7 % (0.0-10.0); %Neutrophils 90.2 % (42.0-75.0); Hematocrit 32.2 % (42.0-52.0); Hemoglobin 10.4 g/dL (14.0-18.0); Mean Corpuscular Hemoglobin 30.0 pg (27.0-31.0); Mean Corpuscular Volume 92.8 fL (78.0-98.0); Platelet Count 313 10x3/uL (130-400); Red Blood Cell (RBC) Count 3.47 mill/uL (4.70-6.10); White Blood Cell (WBC) Count 13.05 10x3/uL (4.8-10.8)
[2025-05-10 04:57] LABS: Anion Gap 10 mmol/L (10-20); BUN (Urea Nitrogen) 19 mg/dL (8.4-25.7); Calc. Creatinine Clearance 121 mL/min (70-130); Calcium 8.8 mg/dL (7.8-10.44); Carbon Dioxide 23 mmol/L (23-31); Chloride 106 mmol/L (98-107); Glucose 172 mg/dL (80-115); Potassium 4.4 mmol/L (3.5-5.1); Sodium 135 mmol/L (136-145)
[2025-05-10] MEDS ORDERED: Lidocaine 1% PF 5 ML VIAL ONE (12:23)
[2025-05-10] MEDS ORDERED: Lidocaine 1% (PF) 30 ML VIAL ONE (12:38)
[2025-05-10] MEDS ORDERED: Bupivacaine 0.25% HCL 30 ML VIAL ONE (12:38)
[2025-05-10] MEDS ORDERED: PROPOFOL 200 MG/20 ML VIAL ONE (13:55)
[2025-05-10] MEDS ORDERED: Ondansetron PF 4 MG/2 ML Vial ONE (14:04)
[2025-05-10 16:20] VITALS: BP 138/74; TEMP 97.9
[2025-05-12] MEDS ORDERED: cloNIDine 0.1mg/24 Hour PATCH TD SCH (09:00)
== END 2025-05-10 17:20 | disposition home or self-care (01) | DRG 190 ==
LOC: MSONC 11:40
PROVIDERS: ADMIT Internal Medicine; ATTEND Family Medicine
PROC: 3E03329 Introduction of Other Anti-infective into Peripheral Vein, Percutaneous Approach (ICD-10-PCS; principal; 2025-05-04)
PROC: 3E0234Z Introduction of Serum, Toxoid and Vaccine into Muscle, Percutaneous Approach (ICD-10-PCS; 2025-05-04)
DX: J44.1 Chronic obstructive pulmonary disease with (acute) exacerbation (principal); J18.8 Other pneumonia, unspecified organism; C25.9 Malignant neoplasm of pancreas, unspecified; C78.7 Secondary malignant neoplasm of liver and intrahepatic bile duct; C79.31 Secondary malignant neoplasm of brain; C78.00 Secondary malignant neoplasm of unspecified lung; R78.81 Bacteremia; D84.9 Immunodeficiency, unspecified; J44.0 Chronic obstructive pulmonary disease with (acute) lower respiratory infection; F17.210 Nicotine dependence, cigarettes, uncomplicated; B95.4 Other streptococcus as the cause of diseases classified elsewhere; G89.4 Chronic pain syndrome; Z95.2 Presence of prosthetic heart valve; Z98.890 Other specified postprocedural states; Z90.49 Acquired absence of other specified parts of digestive tract; Z87.11 Personal history of peptic ulcer disease; Z23 Encounter for immunization
CPT/HCPCS: 36415; 71045; 80048; 84145; 85025; 85610; 86141; 87040; 90471; 90677; 94640; C1788; G0009; J0169; J0456; J0665; J0696; J1642; J1650; J2003; J2405; J2543; J2919; J3010; J7050

== ENCOUNTER 2025-06-05 15:08 | Day surgery (SDC) | payer OTHER ==
[2025-06-05 15:23] VITALS: BP 113/70; TEMP 98.2
== END 2025-06-05 17:00 | disposition home or self-care (01) ==
LOC: ONC/OP 15:08
PROVIDERS: ATTEND Internal Medicine
DX: E86.0 Dehydration (principal); Z79.01 Long term (current) use of anticoagulants; Z95.2 Presence of prosthetic heart valve
CPT/HCPCS: 96360; 96367; J1100; J1642